=== PATIENT | female | born 1960 | race Caucasian/White ===

== ENCOUNTER 2016-11-16 21:30 | Emergency (ER) | payer OTHER ==
[2016-11-16 23:52] VITALS: BP 136/85
== END 2016-11-16 23:52 | disposition home or self-care (01) ==
LOC: ED 21:30
DX: S60.022A Contusion of left index finger without damage to nail, initial encounter (principal); W31.89XA Contact with other specified machinery, initial encounter; Y93.H2 Activity, gardening and landscaping; Y99.8 Other external cause status; Y92.89 Other specified places as the place of occurrence of the external cause
CPT/HCPCS: A4570; J1885